=== PATIENT | female | born 1965 | race Caucasian/White ===

== ENCOUNTER 2023-05-09 15:55 | Observation (INO) | payer BC, SELFPAY ==
[2023-05-09] VITALS (8 sets, daily range): BP systolic 147–174; BP diastolic 81–94; PULSE 88–106; RESP 13–20; TEMP 36.8–36.9; O2SAT 96–100; BMI 22.4
--- NOTE | ~2023-05-09 | XR_ITS ---
EXAMINATION: XR chest 1V portable DATE: 05/09/2023 19:30 INDICATION: Palpitations. TECHNIQUE: A single frontal view of the chest was obtained. COMPARISON: None. FINDINGS: There is no pneumonia, pleural effusion, or pneumothorax. The heart size is normal. IMPRESSION: 1. No acute cardiopulmonary disease. Reviewed, dictated and finalized at location E.
--- NOTE | ~2023-05-09 | US_ITS ---
EXAMINATION: US abdomen limited DATE: 05/10/2023 11:45 INDICATION: Abnormal liver function tests. TECHNIQUE: Multiple grayscale and Doppler ultrasound images of the abdomen were obtained. COMPARISON: None FINDINGS: The visualized portions of the head, body, and tail of the pancreas are normal. There is di ffuse hepatic steatosis. There is normal flow in main portal vein. The gallbladder is normal in size and contains sludge. No gallstones or gallbladder wall thickening. There was no sonographic Alberts si gn. The common duct is normal and measures 3 mm. IMPRESSION: 1. Diffuse hepatic steatosis. Reviewed, dictated and finalized at location A.
--- NOTE | 2023-05-09 15:58 | ECG_ITS ---
Measurements Intervals [place] Rate: 122 P: 64 NC: 139 QRS: 21 QRSD: 94 T: 38 QT: 309 QTc: 442 Interpretive Statements SINUS TACHYCARDIA INCOMPLETE RIGHT BUNDLE BRANCH BLOCK BASELINE ARTIFACT- I, III, AVR, AVL ABNORMAL ECG NO PREVIOUS ECG AVAILABLE FOR COMPARISON Electronically Signed On 05-09-2023 20:13:32 CDT by Troy Womack D.O.
--- NOTE | 2023-05-09 19:16 | ED.ARRPALP ---
HPI - Arrhythmia/Palpitations General Chief Complaint: Arrhythmia/Palpitations Stated Complaint: papitations Time Seen by Provider: 05/09/23 19:03 Source: patient Mode of arrival: ambulatory Limitations: no limitations History of Present Illness HPI narrative: 58-year-old female presenting with palpitations today. Patient states she has episodes of palpitations occasionally for many years now. It typically lasts an hour to an goes away. She had another episode today she wanted to come in to see if we could figure out what it was. Episode lasted 1 hour. Started after she should Sharply inhaled to clear the congestion nose. She said she felt palpitations, like she was somewhat nauseated, weak. Lasted about an hour in the she has been asymptomatic since then. The episode was at 2:00 p.m. today, 5 hours before I was able to evaluate her when she got back to her room. Review of Systems Review of Systems: All systems reviewed & are unremarkable except as noted in HPI and below Exam Narrative: Constitutional: Generally well appearing, no acute distress Head: Atraumatic, no deformities. Eyes: Pupils equal, round, and reactive to light. Neck: Supple, no tracheal deviation, no JVD. ENMT: Mucous membranes moist Cardiovascular: S1, S2 auscultated. No murmurs, rubs, or gallops. No S3/S4. Normal Distal pulses. No peripheral edema. Respiratory: Lung sounds equal. No wheezes, rales, or rhonchi. Gastrointestinal: Abdomen was soft and non-tender. Non-distended. No rebound or guarding. Genitourinary: Deferred Musculoskeletal: Normal muscle tone and bulk. No obvious deformities or tenderness over extremities. Skin: No rashes. Neurological: Strength 5/5 in extremities. Cranial nerves I-XII grossly intact. Distal sensation intact. Mental Status: Awake, alert and oriented x3. Follows commands Course Vital Signs Vital signs: Vital Signs Temperature 36.8 C 05/09/23 15:58 Pulse Rate 88 05/09/23 15:58 Respiratory Rate 16 05/09/23 15:58 Blood Pressure 152/93 H 05/09/23 15:58 Pulse Oximetry 98 05/09/23 15:58 Oxygen Delivery Room Air 05/09/23 15:58 Temperature 36.8 C 05/09/23 15:58 Pulse Rate 88 05/09/23 15:58 Respiratory Rate 16 05/09/23 15:58 Blood Pressure 152/93 H 05/09/23 15:58 Pulse Oximetry 98 05/09/23 15:58 Oxygen Delivery Room Air 05/09/23 15:58 MDM - Arrhythmia/Palpitations MDM Narrative Medical decision making narrative: 58-year-old female presenting with episode of palpitations today. Occurs occasionally. Has never had it evaluated before. Lasted about an hour. Stopped about 5 hours ago. on exam she is well-appearing, normal vitals. EKG showed heart rate of 122. Currently heart rate 88. It was sinus rhythm however suspect potentially could be an arrhythmia such as AFib or SVT the patient is experiencing is seems to come on and stop abruptly. Obtaining cardiac Workup and she was placed on the satellite project site monitor. Initial EKG shows sinus tachycardia at a rate of 122, incomplete right bundle-branch block.? No ST elevation or depression.? No ischemic changes.? Impression:? Sinus tachycardia, no obvious STEMI Labs show troponin elevation but otherwise unremarkable. Will repeat this however will admit the patient for cardiology evaluation as I am concerned that likely this was some sort of arrhythmia causing her symptoms. Patient is agreeable. Admitted to Dr. Eisenberg. given aspirin Lab Data 05/09/23 19:36 05/09/23 19:36 Labs: Lab Results 05/09/23 Range/Units 19:36 WBC 12.0 H (4.5-10.0) K/mm3 RBC 4.13 L (4.2-5.4) M/mm3 Hgb 13.8 (12.0-15.0) g/dL Hct 39.2 (37.0-47.0) % MCV 94.9 (80-100) fl MCH 33.4 (26-34) pg MCHC 35.2 (32-36) g/dl RDW 12.0 (11.5-14.5) % Plt Count 394 H (150-375) k/mm3 MPV 8.9 (7.4-10.4) fl Immature Gran % (Auto) 0.3 (0-0.5) % Neut % (Auto) 81.2 H (45.5-73.1) % Lymph % (Auto) 14.1 L
[2023-05-09 19:42] LABS: Basophils Percent Auto 0.3 % (0.2-1.2); Eosinophils Percent Auto 0.2 % (0-4.4); Hematocrit 39.2 % (37.0-47.0); Hemoglobin 13.8 g/dL (12.0-15.0); Immature Granulocyte Absolute 0.04 K/mm3 (0.00-0.031); Immature Granulocyte Percent A 0.3 % (0-0.5); Lymphocytes Absolute Auto 1.69 K/mm3 (0.9-3.2); Lymphocytes Percent Auto 14.1 % (18.3-44.2); Mean Corpuscular HGB Conc 35.2 g/dl (32-36); Mean Corpuscular Hemoglobin 33.4 pg (26-34); Mean Corpuscular Volume 94.9 fl (80-100); Mean Platelet Volume 8.9 fl (7.4-10.4); Monocytes Absolute Auto 0.5 K/mm3 (0.1-0.6); Monocytes Percent Auto 3.9 % (2.6-8.5); Neutrophils Absolute Auto 9.8 K/mm3 (1.3-6.7); Neutrophils Percent Auto 81.2 % (45.5-73.1); Platelet Count Result 394 k/mm3 (150-375); Red Blood Count 4.13 M/mm3 (4.2-5.4)
[2023-05-09 19:56] LABS: Alanine Aminotransferase 48 U/L (6-35); Albumin Level 4.9 g/dL (3.5-5.1); Alkaline Phosphatase 63 U/L (38-126); Anion Gap 8 mmol/L (8-16); Aspartate Amino Transferase 100 U/L (14-36); Bilirubin,Total 0.5 mg/dL (0.2-1.3); Blood Urea Nitrogen 9 mg/dL (7-17); Calcium 10.1 mg/dL (8.4-10.2); Carbon Dioxide 31 mmol/L (22-30); Chloride 95 mmol/L (98-107); Estimated CRCL calculation 72 ml/min; Estimated Glomerular Filt Rate > 60; Glucose 145 mg/dL (65-110); Potassium 3.2 mmol/L (3.4-5.0); Sodium 134 mmol/L (137-145)
[2023-05-09 20:06] LABS: NT Pro B Type Natriuretic Pept 93 pg/mL (19.9-100); Troponin I 0.601 ng/mL (0.000-0.034)
[2023-05-09 20:07] LABS: INR 0.9; Prothrombin Time 12.1 Seconds (11.1-14.7)
[2023-05-09 20:08] LABS: Partial Thromboplastin Time 25.4 SECONDS (22.3-36.8)
[2023-05-09] MEDS: SODIUM CHLORIDE 0.9% IV 1,000 ML 125 ML IV CONT (22:02)
[2023-05-09] MEDS: ASPIRIN 81 MG CHEWABLE TABLET 324 MG PO (22:03)
--- NOTE | 2023-05-09 22:30 | PM.IMHP ---
H&P: HPI History of Present Illness Date/Time: 05/09/23 22:30 Chief Complaint: Palpitations. Narrative: This is a very pleasant 58-year-old female smoker without significant medical history presented to the emergency department via private vehicle for evaluation of palpitations. The patient provides the following history. She was in her usual state and while riding in a car with her friend she suddenly developed sensations of racing heart, palpitations, shortness of breath, dizziness, nausea, vomiting, and sweats. She has had these symptoms before and in fact they have been going on for years but only occur every few months at the very most. She has never had nausea, vomiting, or sweats with these episodes however. The episodes are typically self resolving within 10 minutes or so; at time she coughs or bears down which seems to terminate the rhythm. Today her symptoms lasted for well over 1 hour despite attempts at vagal maneuvers and she came in for evaluation. She was in a sinus tachycardia with a rate of 122 on arrival to the ED and she has remained tachycardic since that time. Her symptoms have resolved however and she is feeling fine. She denies recent cold and flu symptoms, fever, syncope, exertional chest pain, pleuritic pain, orthopnea, paroxysmal nocturnal dyspnea, edema, and calf pain. No known history of cardiac disease or dysrhythmia, sleep apnea, or thyroid disease. She drinks coffee throughout the day and typically has about 10 beers each evening. She has never had signs or symptoms of alcohol withdrawal. No illicit substance use. Stress test done approximately 4 years ago due to family history (father of an [place] in his 50s) was reportedly unremarkable. In the ED: She has been in a sinus tachycardia since arrival. Blood pressures have been running in the 140s to 150 systolic. Labs were significant for WBC count of 12.0, platelet 394, sodium 134, potassium 3.2, chloride 95, carbon dioxide 31, BUN 60, glucose 145, AST 100, ALT 48, troponin 0.601, proBNP 93. Chest x-ray showed no acute cardiopulmonary disease. EKG showed sinus tachycardia with incomplete right bundle-branch block. She was given aspirin 324 mg x 1 and has been started on normal saline and she is being admitted in this setting for close monitoring, further workup, and Cardiology consultation. Review of Systems Review of Systems: Twelve systems were reviewed and are negative except for as per HPI. PMFSH Past Medical History Medical History Daily consumption of alcohol Tobacco use Surgical History Surgical History (Updated 05/09/23 @ 22:36 by Elsy Villalba PA-C) History of appendectomy History of tubal ligation History of wisdom tooth extraction Family History Family History (Updated 05/09/23 @ 22:37 by Elsy Villalba PA-C) Father Acute myocardial infarction Mother Acute myocardial infarction Social History Social History (Updated 05/09/23 @ 22:38 by Elsy Villalba PA-C) Social History: Surrogate medical decision maker: Barbra Stone (sister) or Kenney Adames (son). Code status: Full code. Smoking packs per day: 1 Smoking cigarettes per day: 20.0 Years smoked: 40 Smoking pack-years: 40.00 Additional smoking assessment comments: Nearly 1 pack of cigarettes a day off and on since her 20s. Alcohol intake: current Drinks per week: 70 Alcohol use details: Drinks 10 beers each evening. Substance use: never Additional living arrangements comments: Patient lives in her own home in [place]. She has 1 adult son. 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 Meds Home Medications and Allergies Allergies Allergy/AdvReac Type Severity Reaction Status Date / Time codeine Allergy Unknown Verified 05/09/23 21:34 Penicillins Allergy Unknown Verified 05/09/23 21:34 Vital Signs Vital Signs - 24 hr 05/09/23 15:58 05/09/23 22:03 Temperature 98.3 F Pulse Rate 88
--- NOTE | 2023-05-09 23:20 | ADMGEN ---
This patient, Keshia Vera, was admitted to IMU Room 201-01. Patient/family oriented to hospital policies and general routines including ID bracelet, bed and alarms, visiting hours, pain management, procedures, bathroom and other care routines, personal items, smoking policy, room service/diet, and visiting hours. Information on how to activate the Rapid Response Team has been discussed. Patient/Family are encouraged to report perceived risks to care and to ask questions if they do not understand what they are told or what they should do.
[2023-05-09 23:24] LABS: Troponin I 0.703 ng/mL (0.000-0.034)
[2023-05-09 23:55] LABS: Magnesium 1.9 mg/dL (1.6-2.3)
[2023-05-09 23:58] LABS: Hemoglobin A1C 5.4 % (<5.7)
[2023-05-10] VITALS (12 sets, daily range): BP systolic 117–156; BP diastolic 61–81; PULSE 79–97; RESP 16–18; TEMP 36.2–36.5; O2SAT 96–100
--- NOTE | 2023-05-10 | ECHO_ITS ---
Patient Info Name: Keshia Vera Age: 58 years : 1965 Gender: Female Ht: 63 in Wt: 126 lbs BSA: 1.60 m2 HR: 63 bpm BP: 136 / 67 mmHg Heart Rhythm: Sinus Rhythm Technical Quality: Good Exam Date: 05/10/2023 7:04 AM Exam Location: Echo Lab Patient Status: Inpatient Admit Date: 05/09/2023 Staff Ordering Physician: Elsy Villalba PA-C Sealing Machine Operator: Anali Rosas RDCS Attending Provider: Betsy Eisenberg MD Referring Physician: Orly VELASQUEZ; Exam Type: CA echo doppler color flow Study Info Indications R00.2 - Palpitations - NSTEMI, Complete two-dimensional, color flow and Doppler transthoracic echocardiogram is performed. Summary 1. Complete two-dimensional, color flow and Doppler transthoracic echocardiogram is performed. 2. Trivial amount of tricuspid regurgitation. 3. Otherwise normal 2D/Doppler echocardiogram. Left Ventricle Left ventricular chamber dimension is normal. Left ventricular systolic function is normal, estimated at 65-70%. The left ventricular diastolic function is normal. Right Ventricle Right ventricular chamber dimension is normal. Left Atria Left atrial chamber dimension is normal. Right Atria Right atrial chamber dimension is normal. Aortic Valve The aortic valve is normal. Pulmonic Valve The pulmonic valve is normal. Mitral Valve The mitral valve has normal leaflets. Tricuspid Valve The tricuspid valve leaflets are normal. There is mild tricuspid valve regurgitation. Pericardium/Pleural The pericardium appears normal. Aorta The aortic root size at the sinus of Valsalva is normal. Left Ventricular Outflow Tract Name Value Normal LVOT 2D LVOT Diameter 2.0 cm LVOT Doppler LVOT Peak Gradient 5 mmHg LVOT Mean Gradient 3 mmHg LVOT VTI 23 cm LVOT VTI/AV VTI Ratio 0.8 LVOT Stroke Volume 70 ml LVOT CO 5.3 l/min LVOT CI 3.3 l/min/m2 Pulmonic Valve Name Value Normal RVOT Doppler RVOT Peak Gradient 2 mmHg PV Doppler PV Peak Gradient 3 mmHg Mitral Valve Name Value Normal MV Doppler MV Decel [place] 466 cm/s2 MV PHT 55 ms MV Area (PHT) 4.0 cm2 4.0-5.0 MV Diastolic Function MV E Peak Velocity 89 cm/s MV A Peak V
[2023-05-10 00:27] LABS: Hepatitis B Surface Antigen Negative (Negative)
[2023-05-10 00:33] LABS: HAV RESULT Negative (Negative); Hepatitis B Core IgM Result Negative (Negative)
[2023-05-10] MEDS: POTASSIUM CHLORIDE 20 MEQ ER TABLET 40 MEQ PO (00:40)
[2023-05-10] MEDS: ENOXAPARIN 60 MG/0.6 ML SYRINGE SUB-Q ×2 (00:41→10:16)
[2023-05-10 00:44] LABS: Hepatitis C Virus Antibody Negative (Negative)
[2023-05-10] MEDS: METOPROLOL TARTRATE 25 MG TABLET PO (00:46)
[2023-05-10 04:18] LABS: Anion Gap 4 mmol/L (8-16); Blood Urea Nitrogen 7 mg/dL (7-17); Calcium 9.1 mg/dL (8.4-10.2); Carbon Dioxide 27 mmol/L (22-30); Chloride 99 mmol/L (98-107); Estimated CRCL calculation 83 ml/min; Estimated Glomerular Filt Rate > 60; Glucose 96 mg/dL (65-110); Potassium 3.6 mmol/L (3.4-5.0); Sodium 130 mmol/L (137-145)
[2023-05-10 04:35] LABS: Troponin I 0.442 ng/mL (0.000-0.034)
[2023-05-10] MEDS: SODIUM CHLORIDE 0.9% IV 1,000 ML 125 ML IV CONT ×2 (05:46→14:40)
--- NOTE | 2023-05-10 08:53 | PM.IMPN ---
Progress Note: A&P Assessment and Plan (1) Non-ST elevation myocardial infarction (NSTEMI): Code(s): I21.4 - Non-ST elevation (NSTEMI) myocardial infarction Status: Acute (2) Palpitations: Code(s): R00.2 - Palpitations Status: Acute (3) Transaminitis: Code(s): R74.01 - Elevation of levels of liver transaminase levels Status: Acute (4) Electrolyte abnormality: Code(s): E87.8 - Other disorders of electrolyte and fluid balance, not elsewhere classified Status: Acute (5) Elevated random blood glucose level: Code(s): R73.09 - Other abnormal glucose Status: Acute (6) Daily consumption of alcohol: Code(s): Z78.9 - Other specified health status Status: Acute (7) Tobacco use: Code(s): Z72.0 - Tobacco use Status: Acute Plan This is 58-year-old female without significant past medical history present to the ER for evaluation of palpitations. She was in her usual state and while riding in a car with a friend she suddenly developed sensation of racing heart palpitations shortness of breath dizziness nausea vomiting and sweating. She has had these symptoms before in fact they have been going on for years but only occur every few months at the very most. She had never had nausea vomiting or sweats with these episodes however. The episodes are typically self resolving within 10 minutes so at times she coughs or bears down with since determinate the rhythm. Today her symptoms lasted for well over 1 hour despite attempts at vagal maneuvers and she came in for evaluation in the EDC was noted to be in sinus tachycardia with rate of 122 on arrival to the ED and she had remain tachycardic since that time. Symptoms have resolved however she is feeling fine. She denies any recent cold or flu symptoms fever syncope exertional chest pain pleuritic pain orthopnea proximal nocturnal dyspnea edema and cough pain. No prior history of cardiac disease or dysrhythmia sleep apnea or thyroid disease. She drinks coffee throughout the day and typically has about 10 beers each evening. She has never had signs of symptoms of alcohol withdrawal. No illicit drug use. Stress test was done approximately 4 years ago due to family history father of [place] in his 50s was reportedly unremarkable. In the EDC was in sinus tachycardia. Blood pressure 1 40s to 150s systolic. Laboratory evaluation showed WBC count of fall platelet of 394 sodium 134 potassium low at 3.2 carbon dioxide 31 BUN 60 glucose 145 AST 100 ALT 48 troponin 0.601 proBNP of 93. Chest x-ray showed no acute cardiopulmonary disease. EKG shows sinus tachycardia with incomplete right bundle branch block. She was given aspirin 325 mg x 1 and was started on normal saline. She will be monitored on telemetry for possible arrhythmia Cl troponin 0.601-0.70 3-0.442 flat trend and troponin leak may very well be related to the tachycardia. Treated as non-STEMI with Lovenox therapeutic does Beta-tangela has been started. TSH came back normal. Cardiology has been consulted echo pending Family history of premature coronary artery disease PEs considered but seems unlikely to history and physical exam findings. Chronic alcohol use Hypokalemia Hyponatremia Elevated liver enzymes check ultrasound DVT prophylaxis on Lovenox Subjective Date/time seen: 05/10/23 08:53 Interval history: Feels okay. No new complaints. No nausea vomiting. No abdominal pain Review of Systems Review of Systems: All systems reviewed & are unremarkable except as noted in HPI and below Exam Narrative: General: Well-developed, nontoxic-appearing female sitting up in bed in no acute distress. HEENT: Normocephalic, atraumatic. Wearing corrective lenses. PERRL, EOMI. Sclera anicteric. Oral mucosa moist. Oropharynx clear. Neck: Supple. No JVD. Respiratory: Lungs are clear to auscultation bilaterally. Cardiovascular: Tachycardic with normal S1-S2. No murm
[2023-05-10] MEDS: ASPIRIN 81 MG ENTERIC TABLET PO (10:16)
[2023-05-10] MEDS: THERAPEUTIC MULTIVITAMINS/MINERALS TAB (*BKC) 1 TABLET PO (10:16)
--- NOTE | 2023-05-10 13:51 | PM.CNCAR ---
Assessment and Plan Assessment and plan (1) Palpitations: Code(s): R00.2 - Palpitations Status: Acute Plan This is a 58-year-old patient with intermittent tachycardia/palpitations. Her history is very suspicious for SVT, most likely AV node reentry. Her arrhythmia has never been captured or documented on electrocardiogram according to the history that she provides. Fortunately her resting electrocardiogram looks normal as does her echocardiogram. At this point I believe I would recommend treating her with some long-acting diltiazem which I will go ahead and prescribe and arrange for appropriate follow-up in the office. I will treat her with a presumptive diagnosis of SVT given her very typical history. It goes without saying that smoking cessation and alcohol moderation should also be recommended. Norris Brennan MD [facility] History of Present Illness History of Present Illness Consult date/time: 05/10/23 13:51 Reason For Visit: papitations Narrative: This is a very pleasant 58-year-old lady I am seeing at the request of the hospitalist because of the palpitations/tachycardia with which she was admitted last evening from the emergency department. She says that she has been having episodes of intermittent tachycardia with palpitations for at least several years. She had seen a airframe technical officer elsewhere for evaluation and reports that no diagnosis was made. She did report having had a stress test of some sort at that time which was she was told was negative. She reports episodes of sudden unpredictable tachycardia that seems to occur she estimates now about every 3-6 months. The episodes are generally self-limited interestingly she has lowered herself that holding her breath and bearing down will commonly terminate this symptom. She had some of the symptomatology yesterday and her efforts to bear down did not provide relief. She was not feeling too bad but she discuss this with a friend who she was with neena to come to the emergency room for evaluation. Upon arrival in the emergency room she was already feeling better she was in a sinus tachycardia with a heart rate of about 120 which gradually slow down while she was there. She had a negative ER evaluation otherwise and was admitted to the hospital for further observation and management. She has not had any symptoms since admission is visiting with her family when I came in to see her and seems to be feeling well. An echocardiogram was done this morning which I just read a short time ago which looks essentially unremarkable. Her 12 lead electrocardiogram is also without significant abnormality as is her chest x-ray other than showing evidence of some COPD. She has a history of smoking cigarettes since she was a teenager she also drinks beer excessively reporting to drink about 10 beers daily. Review of Systems Constitutional: Constitutional: Reports no additional constitutional complaints Eyes: Eyes: Reports no additional eye complaints ENT: Reports system reviewed and no additional complaints, except as documented Cardiovascular: Cardiovascular: Reports as per HPI and Reports palpitations Respiratory: Respiratory: Reports no additional respiratory complaints Gastrointestinal: Gastrointestinal: Reports no additional gastrointestinal complaints Musculoskeletal: Musculoskeletal: Reports no additional musculoskeletal complaints Integumentary/Breasts: Skin/Breast: Reports system reviewed and no additional complaints, except as docu Neurologic: Reports system reviewed and no additional complaints, except as documented Endocrine: Endocrine: Reports no additional endocrine complaints Hematologic/Lymphatic: Hematologic/Lymphatic: Reports no additional hematologic/lymphatic complaints Allergic/Immunologic: Allergic/Immunologic: Reports no additional allergic/immunologic complaints PMFSH Past Medical History Medical History Daily consumption of alcohol Tobacco
--- NOTE | 2023-05-10 17:44 | PM.DS ---
DS: Admitting Diagnosis Discharge Date 05/10/2023 Admitting Diagnosis Palpitation DS: Discharge Diagnosis Discharge Diagnosis (1) Non-ST elevation myocardial infarction (NSTEMI): Code(s): I21.4 - Non-ST elevation (NSTEMI) myocardial infarction Status: Acute (2) Palpitations: Code(s): R00.2 - Palpitations Status: Acute (3) Transaminitis: Code(s): R74.01 - Elevation of levels of liver transaminase levels Status: Acute (4) Electrolyte abnormality: Code(s): E87.8 - Other disorders of electrolyte and fluid balance, not elsewhere classified Status: Acute (5) Elevated random blood glucose level: Code(s): R73.09 - Other abnormal glucose Status: Acute (6) Daily consumption of alcohol: Code(s): Z78.9 - Other specified health status Status: Acute (7) Tobacco use: Code(s): Z72.0 - Tobacco use Status: Acute DS: Summary Hospital Course Hospital Course: This is 58-year-old female without significant past medical history present to the ER for evaluation of palpitations.? She was in her usual state and while riding in a car with a friend she suddenly developed sensation of racing heart palpitations shortness of breath dizziness nausea vomiting and sweating.? She has had these symptoms before in fact they have been going on for years but only occur every few months at the very most.? She had never had nausea vomiting or sweats with these episodes however.? The episodes are typically self resolving within 10 minutes so at times she coughs or bears down with since determinate the rhythm.? Today her symptoms lasted for well over 1 hour despite attempts at vagal maneuvers and she came in for evaluation in the EDC was noted to be in sinus tachycardia with rate of 122 on arrival to the ED and she had remain tachycardic since that time.? Symptoms have resolved however she is feeling fine.? She denies any recent cold or flu symptoms fever syncope exertional chest pain pleuritic pain orthopnea proximal nocturnal dyspnea edema and cough pain.? No prior history of cardiac disease or dysrhythmia sleep apnea or thyroid disease.? She drinks coffee throughout the day and typically has about 10 beers each evening.? She has never had signs of symptoms of alcohol withdrawal.? No illicit drug use.? Stress test was done approximately 4 years ago due to family history father of [place] in his 50s was reportedly unremarkable. In the ED she was in sinus tachycardia.? Blood pressure 1 40s to 150s systolic.? Laboratory evaluation showed WBC count of fall platelet of 394 sodium 134 potassium low at 3.2 carbon dioxide 31 BUN 60 glucose 145 AST 100 ALT 48 troponin 0.601 proBNP of 93.? Chest x-ray showed no acute cardiopulmonary disease.? EKG shows sinus tachycardia with incomplete right bundle branch block.? She was given aspirin 325 mg x 1 and was started on normal saline.? She will be monitored on telemetry for possible arrhythmia Cl troponin 0.601-0.70 3-0.442 flat trend and troponin leak may very well be related to the tachycardia.? Treated as non-STEMI with Lovenox therapeutic does Beta-tangela has been started.? TSH came back normal. Cardiology has been consulted echo unremarkable. Suspected SVT and was started on Cardizem by law office manager. She will be sent home on Cardizem and follow-up with cardiology as an outpatient basis. Family history of premature coronary artery disease PEs considered but seems unlikely to history and physical exam findings. Chronic alcohol use Hypokalemia Hyponatremia Elevated liver enzymes check ultrasound DVT prophylaxis on Lovenox Time Spent with Patient Time attestation: Total time spent providing and/or coordinating discharge services: 35 minutes Exam Narrative: General: Well-developed, nontoxic-appearing female sitting up in bed in no acute distress. HEENT: Normocephalic, atraumatic. Wearing corrective lenses. PERRL, EOMI. Sclera anicteric. Oral mucosa vineet
== END 2023-05-10 18:25 | disposition home or self-care (01) ==
LOC: ANHED 21:26 → ANHIMU 05-10 03:32
PROVIDERS: Physician Assistant; Admitting Provider Internal Medicine; Emergency Provider Emergency Medicine; PCP Internal Medicine; Visit Provider Internal Medicine
DX: I21.4 Non-ST elevation (NSTEMI) myocardial infarction (principal); I07.1 Rheumatic tricuspid insufficiency; I45.10 Unspecified right bundle-branch block; R74.01 Elevation of levels of liver transaminase levels; K76.0 Fatty (change of) liver, not elsewhere classified; R73.09 Other abnormal glucose; E87.8 Other disorders of electrolyte and fluid balance, not elsewhere classified; F10.90 Alcohol use, unspecified, uncomplicated; F17.210 Nicotine dependence, cigarettes, uncomplicated; R06.02 Shortness of breath; Z79.82 Long term (current) use of aspirin; Z79.899 Other long term (current) drug therapy; Z82.49 Family history of ischemic heart disease and other diseases of the circulatory system
CPT/HCPCS: 36415; 71045; 76705; 80048; 80053; 80074; 83036; 83735; 83880; 84443; 84484; 85025; 85610; 85730; 93005; 93306; 96372; 99285; A9270; G0378; J1650; J7030